=== PATIENT | male | born 1975 ===

== ENCOUNTER 2017-06-06 19:35 | Inpatient (IN) | payer MEDICAID, OTHER ==
[2017-06-06 19:36] VITALS: BMI 21.4
[2017-06-06 20:49] LABS: SQUAMOUS EPITHIAL 3 /hpf (0-5); URINE AMORPHOUS SEDIMENT RARE /ul (<OCC); URINE BACTERIA OCC (<OCC); URINE BILIRUBIN NEGATIVE (NEGATIVE); URINE BLOOD MODERATE (NEGATIVE); URINE CLARITY CLOUDY (Clear); URINE COLOR AMBER (YELLOW); URINE GLUCOSE (UA) NEG (Normal); URINE HYALINE CAST 0-2 /hpf (0-2); URINE LEUKOCYTE ESTERASE TRACE Leu/uL (Negative); URINE PROTEIN 100 mg/dL (NEGATIVE)
[2017-06-06 20:51] LABS: BASO % 0.1 % (0.0-2.0); HEMOGLOBIN 10.1 g/dL (12.0-18.0); LYMPH # 1.8 K/uL (1.0-4.3); LYMPH % 11.9 % (20.0-40.0); MEAN CELL VOLUME 82.7 fl (80.0-94.0); MEAN CORPUSCULAR HEMOGLOBIN 26.7 pg (27.0-31.0); MEAN CORPUSCULAR HGB CONC 32.3 g/dL (33.0-37.0); MEAN PLATELET VOLUME 7.3 fl (7.2-11.7); MONO # 0.8 K/uL (0.0-0.8); MONO % 5.5 % (0.0-10.0); NEUT # 12.4 K/uL (1.8-7.0); NEUT % 82.5 % (50.0-75.0); RBC 3.77 Mil/uL (4.40-5.90); RED CELL DISTRIBUTION WIDTH 15.4 % (11.5-14.5)
[2017-06-06 20:54] LABS: ALB/GLOB RATIO 0.6 (1.0-2.1); ALBUMIN 3.5 g/dL (3.5-5.0); ALT/SGPT 70 U/L (21-72); AST/SGOT 87 U/L (17-59); BLOOD UREA NITROGEN 17 mg/dl (9-20); CALCIUM 8.1 mg/dL (8.4-10.2); GFR AFRICAN-AMERICAN > 60; GFR NON-AFRICAN AMERICAN > 60
[2017-06-06 21:15] LABS: VENOUS BLOOD GAS BASE EXCESS -0.6 mmol/L (0.0-2.0); VENOUS BLOOD GAS PCO2 35 mmHg (40-60); VENOUS BLOOD GAS PO2 40 mm/Hg (30-55); VENOUS BLOOD PH 7.43 (7.32-7.43)
--- NOTE | 2017-06-06 21:33 | US ---
EXAM: US Scrotum CLINICAL HISTORY: 41 years old, male; Pain and signs and symptoms; Edema and other: Fever; Scrotum pain; Additional info: Fever l testicle pain, edema/mass TECHNIQUE: Real-time ultrasound of the scrotum with color Doppler and image documentation. COMPARISON: No relevant prior studies available. FINDINGS: Right testicle: No mass. No torsion. Left testicle: No mass. No torsion. Increased vascularity. Epididymides: Enlarged, heterogeneous, hypervascular LEFT epididymis. Scrotum: Unremarkable. IMPRESSION: 1. Findings suggestive of LEFT epididymitis and probable orchitis. Clinical correlation and follow up are recommended.
[2017-06-06] MEDS ORDERED: Piperacillin/Tazobact 4.5 GM in Sodium Chloride 0.9% 100 ML IVPB STA (22:04)
[2017-06-06] MEDS ORDERED: Sodium Chloride 0.9% 1,000 ML IV STA (22:06)
--- NOTE | 2017-06-06 23:26 | ED PDOC ---
HPI: General Adult Time Seen by Provider: 06/06/17 20:02 Chief Complaint (Nursing): Male Genitourinary Chief Complaint (Provider): left testicle pain, fever History Per: Patient History/Exam Limitations: no limitations Onset/Duration Of Symptoms: Days (4), Gradual Current Symptoms Are (Timing): Still Present Severity: Moderate Additional Complaint(s): 41yo male denies past medical history presents c/o left testicular pain and fever, taking Alleve and left over ampicillin at home with mild relief. Admits to last sexual encounter about one month ago, one partner, male, occassional protection. States tested for HIV last year when had hernia surgery and negative. Denies dysphagia, weight loss or cough, vomiting, diarrhea or penile discharge. Past Medical History Reviewed: Historical Data, Nursing Documentation, Vital Signs Vital Signs: Last Vital Signs Temp 98.4 F 06/06/17 23:04 Pulse 85 06/06/17 23:04 Resp 18 06/06/17 23:04 BP 119/70 06/06/17 23:04 Pulse Ox 99 06/06/17 23:04 - Medical History PMH: No Chronic Diseases Denies: Chronic Kidney Disease - Surgical History Surgical History: Appendectomy, Hernia Repair - Family History Family History: States: Unknown Family Hx - Living Arrangements Living Arrangements: Other - Social History Drugs: Denies - Home Medications Home Medications: Ambulatory Orders Medication Instructions Recorded Docusate [Colace] 100 mg PO BID #30 cap 11/16/15 oxyCODONE/Acetaminophen [Percocet 1 ea PO Q6 PRN #6 tab 11/16/15 5/325 mg Tab] - Allergies Allergies/Adverse Reactions: Allergies Allergy/AdvReac Type Severity Reaction Status Date / Time No Known Allergies Allergy Verified 11/16/15 13:03 Review of Systems Constitutional: Positive for: Fever, Chills, Weakness Cardiovascular: Negative for: Chest Pain Respiratory: Negative for: Cough Gastrointestinal: Negative for: Nausea Genitourinary Male: Positive for: Dysuria, Frequency, Scrotal Pain. Negative for: Hematuria, Penile Discharge Musculoskeletal: Positive for: Back Pain. Negative for: Neck Pain Skin: Positive for: Rash, Lesions Neurological: Positive for: Dizziness. Negative for: Weakness, Numbness, Headache Psych: Negative for: Suicidal ideation Physical Exam - Reviewed Nursing Documentation Reviewed: Yes Vital Signs Reviewed: Yes - Physical Exam Appears: Positive for: Non-toxic (mild temporal wasting) Head Exam: Positive for: ATRAUMATIC, NORMAL INSPECTION, NORMOCEPHALIC Skin: Positive for: Normal Color, Warm, DRY Eye Exam: Positive for: Normal appearance, EOMI, PERRL, Other (no obvious thrush ) ENT: Positive for: Normal ENT Inspection, Other (facial folliculitis) Neck: Positive for: Normal, Painless ROM Cardiovascular/Chest: Positive for: Regular Rate, Rhythm Respiratory: Positive for: CNT, Normal Breath Sounds Gastrointestinal/Abdominal: Positive for: Soft. Negative for: Tenderness Male Genital Exam: Positive for: scrotum tenderness (L), testicular tenderness ( L), other (L testicular tenderness/ mass/ enlargement). Negative for: urethral discharge Back: Positive for: Normal Inspection Extremity: Positive for: Normal ROM Neurologic/Psych: Positive for: Alert, Oriented. Negative for: Motor/Sensory Deficits - Laboratory Results Result Diagrams: 06/06/17 20:30 06/06/17 20:30 - ECG O2 Sat by Pulse Oximetry: 99 Medical Decision Making Medical Decision Making: patient w fever, evidence of infection/ concern for clinical appearance of HIV although he denies. Patient consented for repeat HIV testing Labs reveal elev WBC and elev lactate UA reveals WBC and RBC, leuk est US testicle concerning for orchitis/ epididymitis D/w urology Dr Jones rec Cordell, will consult D/w Dr Fowler title i paraprofessional ID, ok w lavelle/cordell, will consult Admit FP service for new onset HIV and sepsis workup I told patient w Dr Donaldson his presumptive HIV diagnosis and counseled to alert his partner(s). Confirmatory testing pending. Disposition - Clinical Impression Clinical Impression: Severe sepsis, Orchitis, HIV (human immunodeficiency virus infection) - Patient ED Disposition Is Patient to be Admitted: Yes - Disposition Disposition Time: 22:01 Condition: FAIR - Pt Status Changed To: Hospital Disposition Of: Inpatient - Admit Certification Admit to Inpatient:: After my assessment, the patient will require hospitalization for at least two midnights. This is because of the severity of symptoms shown, intensity of services needed, and/or the medical risk in this patient being treated as an outpatient. - POA Present On Arrival: None
--- NOTE | 2017-06-06 23:37 | CP.PCM.HP ---
History of Present Illness - History of Present Illness History of Present Illness: 41 yo ,m, PMhx/o left kidney agenesia presents to Ed c/o left testicular swelling started 3 days ago associated with fever 102-104 F, 2-3 times/day and mild testicular pain, partially alleviated with Aleve and advil. Patient also reports weight loss 5-10 lbs and fatigue for the last 6 months. He denies dysuria, hematuria, n,v,d,abd pain,diarrhea, rectal bleeding, urethral discharge, chest pain, SOB. Reportsto be sexually active MSM, 1 couple for the last year. Last intercourse 1 months ago, not using condoms. On evaluation in ED patient hemodynamically stable, denies testicular pain, labs showed + HIV screening test. Patient given HIV lab results by Dr Seaman and me. Patient verbalized understanding and agree to report to his couple. Reports HIV test neg in 2015 when he had the inguinal hernia surgery PMD: [facility] last visit 11/2015 Dr Rea PMHx: Left kidney agenesia Allergies: NKDA Meds : none Psurghx: Right inguinal hernia 2015, appendectomy 1999 PFhx: Mother HTN PShx: Denies ETOH,rect drugs, cig. Status: Full code Ed Course VS: Temp 102. 3 HR: 133 PE: left testicle swelling, enlargment, TD to palpation Labs: CBC: 15.0>10.1<296 CMP: NA 131. K: 3.3 VBG: lactate 3.2 UA reveals WBC and RBC, leuk est Imaging: US testicle left epididymitis and problable orchitis Meds: lavelle/patrick. NS 1l D/w urology Dr Jones rec Patrick, will consult D/w Dr Fowler consulting software engineer ID, ok w lavelle/patrick, will consult Present on Admission - Present on Admission Any Indicators Present on Admission: No History of DVT/PE: No History of Uncontrolled Diabetes: No Urinary Catheter: No Decubitus Ulcer Present: No Review of Systems - Review of Systems All systems: reviewed and no additional remarkable complaints except - Cardiovascular Cardiovascular: As Per HPI - Respiratory Respiratory: As Per HPI - Gastrointestinal Gastrointestinal: As Per HPI - Genitourinary Genitourinary: As Per HPI - Reproductive: Male Additional comments: left testicular swelling and pain - Neurological Neurological: As Per HPI Past Patient History - Past Medical History & Family History Past Medical History?: Yes - Past Social History Drugs: Denies - CARDIAC Hx Cardiac Disorders: No - PULMONARY Hx Respiratory Disorders: No - NEUROLOGICAL Hx Neurological Disorder: No - HEENT Hx HEENT Problems: No - RENAL Hx Chronic Kidney Disease: No - ENDOCRINE/METABOLIC Hx Endocrine Disorders: No - HEMATOLOGICAL/ONCOLOGICAL Hx Blood Disorders: No - INTEGUMENTARY Hx Dermatological Problems: No - MUSCULOSKELETAL/RHEUMATOLOGICAL Hx Musculoskeletal Disorders: No - GASTROINTESTINAL Hx Gastrointestinal Disorders: No - GENITOURINARY/GYNECOLOGICAL Hx Genitourinary Disorders: No - PSYCHIATRIC Hx Psychophysiologic Disorder: No Hx Substance Use: Yes (Occasional weed) - SURGICAL HISTORY Hx Appendectomy: Yes - ANESTHESIA Hx Anesthesia: Yes Hx Anesthesia Reactions: No Hx Malignant Hyperthermia: No Meds Allergies/Adverse Reactions: Allergies Allergy/AdvReac Type Severity Reaction Status Date / Time No Known Allergies Allergy Verified 11/16/15 13:03 Physical Exam - Constitutional Appears: No Acute Distress - Head Exam Head Exam: ATRAUMATIC, NORMOCEPHALIC - Eye Exam Eye Exam: EOMI, Normal appearance, PERRL - ENT Exam ENT Exam: Mucous Membranes Moist - Neck Exam Neck exam: Positive for: Normal Inspection - Respiratory Exam Respiratory Exam: Clear to Auscultation Bilateral. absent: Rales, Rhonchi, Wheezes - Cardiovascular Exam Cardiovascular Exam: REGULAR RHYTHM, +S1, +S2 - GI/Abdominal Exam GI & Abdominal Exam: Normal Bowel Sounds, Soft. absent: Guarding, Rebound, Tenderness - Exam Exam: Scrotal Swelling (left testicule swelling, redness, mild skin abrasion , no discharge), Testicular Tenderness External exam: Erythema, Swelling Additional comments: left inguinal small lymphadenopathy present - Extremities Exam Extremities exam: Positive for: normal capillary refill, normal inspection. Negative for: calf tenderness, pedal edema - Back Exam Back exam: NORMAL INSPECTION - Neurological Exam Neurological exam: Alert, Oriented x3 - Psychiatric Exam Psychiatric exam: Normal Affect, Normal Mood - Skin Skin Exam: Erythema (mild rash and skin erythema lateral side jaw), Rash Results - Vital Signs Recent Vital Signs: Last Vital Signs Temp 98.4 F 06/06/17 23:04 Pulse 85 06/06/17 23:04 Resp 18 06/06/17 23:04 BP 119/70 06/06/17 23:04 Pulse Ox 99 06/06/17 23:30 - Labs Result Diagrams: 06/06/17 20:30 06/06/17 20:30 Labs: Laboratory Results - last 24 hr 06/06/17 06/06/17 06/06/17 20:30 20:30 20:30 WBC 15.0 H RBC 3.77 L Hgb 10.1 L Hct 31.2 L MCV 82.7 MCH 26.7 L MCHC 32.3 L RDW 15.4 H Plt Count 296 MPV 7.3 Neut % (Auto) 82.5 H Lymph % (Auto) 11.9 L [place] % (Auto) 5.5 Eos % (Auto) 0.0 Baso % (Auto) 0.1 Neut # (Auto) 12.4 H Lymph # (Auto) 1.8 [place] # (Auto) 0.8 Eos # (Auto) 0.0 Baso # (Auto) 0.0 pO2 VBG pH VBG pCO2 VBG HCO3 VBG Total CO2 VBG O2 Sat (Calc) VBG Base Excess VBG Potassium Glucose Lactate FiO2 Crit Value Called To Crit Value Called By Crit Value Read Back Blood Gas Notified Time Sodium 131 L Potassium 3.3 L Chloride 96 L Carbon Dioxide 21 L Anion Gap 17 BUN 17 Creatinine 0.9 Est GFR ( Amer) > 60 Est GFR (Non-Af Amer) > 60 Random Glucose 165 H Calcium 8.1 L Total Bilirubin 0.4 AST 87 H ALT 70 Alkaline Phosphatase 89 Total Protein 9.4 H Albumin 3.5 Globulin 5.9 H Albumin/Globulin Ratio 0.6 L Venous Blood Potassium Urine Color Urine Clarity Urine pH Ur Specific [place] Urine Protein Urine Glucose (UA) Urine Ketones Urine Blood Urine Nitrate Urine Bilirubin Urine Urobilinogen Ur Leukocyte Esterase Urine RBC (Auto) Urine Microscopic WBC Ur Squamous Epith Cells Amorphous Sediment Urine Bacteria Hyaline Casts HIV-1 Ab Rapid Screen Ab reactive H 06/06/17 06/06/17 20:30 21:06 WBC RBC Hgb Hct MCV MCH MCHC RDW Plt Count MPV Neut % (Auto) Lymph % (Auto) [place] % (Auto) Eos % (Auto) Baso % (Auto) Neut # (Auto) Lymph # (Auto) [place] # (Auto) Eos # (Auto) Baso # (Auto) pO2 40 VBG pH 7.43 VBG pCO2 35 L VBG HCO3 23.9 VBG Total CO2 24.3 VBG O2 Sat (Calc) 71.3 H VBG Base Excess -0.6 L VBG Potassium 3.5 L Glucose 146 H Lactate 3.2 H FiO2 21.0 Crit Value Called To kelsey Seaman do Crit Value Called By Patrick mendoza Crit Value Read Back Y Blood Gas Notified Time 2114 Sodium 129.0 L Potassium Chloride 95.0 L Carbon Dioxide Anion Gap BUN Creatinine Est GFR ( Amer) Est GFR (Non-Af Amer) Random Glucose Calcium Total Bilirubin AST ALT Alkaline Phosphatase Total Protein Albumin Globulin Albumin/Globulin Ratio Venous Blood Potassium 3.5 L Urine Color [place] Urine Clarity Cloudy Urine pH 6.0 Ur Specific [place] 1.030 Urine Protein 100 Urine Glucose (UA) Neg Urine Ketones Negative Urine Blood Moderate Urine Nitrate Negative Urine Bilirubin Negative Urine Urobilinogen 2.0 Ur Leukocyte Esterase Trace Urine RBC (Auto) 33 H Urine Microscopic WBC 15 H Ur Squamous Epith Cells 3 Amorphous Sediment Rare H Urine Bacteria Occ H Hyaline Casts 0-2 HIV-1 Ab Rapid Screen Assessment & Plan - Assessment and Plan (Free Text) Plan: 41 yo ,m, PMhx/o left kidney agenesia c/o left testicular swelling, pain and fever for 3 days admitted for left testicular epididymitis, new diagnosis HIV and sev sepsis. Assessment/Plan 1)Severe sepsis -SIRS( fever, Tachy)+epididymitis+UTI -inmunospuressed patient with new diagnosis HIV -VBG lactic acid 3.2 -s/p Zosyn, Vancomycin ED -c/w vancomcin, Zosyn -s/p IV fluids ED -c/w IV fluids NS 150 ml/h 20 meq KCL -f/u blood cx, f/u VBG 2) Left testicular epididymitis -with possible orchitis -Testicular US: left testicular orchitis with possible epidydimitis -s/p Abx Ed -c/w abx -D/w urology Dr Jones rec Sobiasyn, will consult -D/w Dr Fowler consulting software engineer ID, ok w vanco/zosyn, will consult -f/u Gc/chlamydia -f/u urine cx 3) UTI -low UTI secondary to orchitis. may be GC/chlamydia infection -UA hematuria, leukocyturia, lukocyte sterase positive -c/w abd -will need cover with Azythromycin 1gm PO -f/u urine cx 4) Newly diagnosed HIV positive -MSM, fatigue, weight loss -HIV screening positive -HIV ag/Ab 4gen -Viral load -CD4 -f/u hepbAg/ab, hepc Ab 5) Hypokalemia IV fluids NS and KCL 20 meq -f/u CMP 6 ) DVT Prophylaxis -Lovenox 40 mg sc daily
[2017-06-07 00:29] LABS: VENOUS BLOOD GAS BASE EXCESS -0.4 mmol/L (0.0-2.0); VENOUS BLOOD GAS PCO2 33 mmHg (40-60); VENOUS BLOOD GAS PO2 38 mm/Hg (30-55); VENOUS BLOOD PH 7.45 (7.32-7.43)
[2017-06-07] MEDS: Potassium Chl 20 mEq in NS 1,000 ML IV SCH ×4 (01:09→13:49)
[2017-06-07] MEDS: Piperacillin/Tazobact 4.5 GM in Sodium Chloride 0.9% 100 ML IVPB SCH ×4 (04:55→21:55)
[2017-06-07 05:53] LABS: HEMOGLOBIN 9.6 g/dL (12.0-18.0); MEAN CELL VOLUME 82.3 fl (80.0-94.0); MEAN CORPUSCULAR HGB CONC 32.8 g/dL (33.0-37.0); RBC 3.56 Mil/uL (4.40-5.90); RED CELL DISTRIBUTION WIDTH 15.5 % (11.5-14.5); WHITE BLOOD COUNT 9.8 K/uL (4.8-10.8)
[2017-06-07] MEDS ORDERED: Pneumococcal 23-Valent Vaccine IM ONE (06:00)
[2017-06-07 06:03] LABS: ALB/GLOB RATIO 0.6 (1.0-2.1); ALBUMIN 3.1 g/dL (3.5-5.0); ALT/SGPT 65 U/L (21-72); AST/SGOT 86 U/L (17-59); BLOOD UREA NITROGEN 13 mg/dl (9-20); CALCIUM 7.6 mg/dL (8.4-10.2); GFR AFRICAN-AMERICAN > 60; GFR NON-AFRICAN AMERICAN > 60
--- NOTE | 2017-06-07 07:55 | CP.PCM.PN ---
Subjective - Date & Time of Evaluation Date of Evaluation: 06/07/17 Time of Evaluation: 08:50 - Subjective Subjective: Pt seen and examined at bedside. Reports improved L testicular pain with meds. Reports no difficulty or burnging with urination. Denies cp/sob/n/v. Reports last BM last night. Objective - Vital Signs/Intake and Output Vital Signs (last 24 hours): Temp Pulse Resp BP Pulse Ox 101.8 F H 128 H 20 126/74 98 06/07/17 05:55 06/07/17 05:07 06/07/17 05:07 06/07/17 05:07 06/07/17 05:07 - Medications Medications: Current Medications Acetaminophen (Tylenol 325mg Tab) 650 mg PO Q6 PRN PRN Reason: Pain, Mild (1-3) Acetaminophen (Tylenol 325mg Tab) 650 mg PO Q6 PRN PRN Reason: Fever >100.4 F Last Admin: 06/07/17 04:55 Dose: 650 mg Enoxaparin Sodium (Lovenox) 40 mg SC DAILY B[place] PRN Reason: Protocol Potassium Chloride/Sodium Chloride (Potassium Chl 20 Meq In Ns) 1,000 mls @ 150 mls/hr IV .Q6H40M [place] Stop: 06/07/17 23:45 Last Admin: 06/07/17 06:32 Dose: Not Given Piperacillin Sod/Tazobactam (Sod 4.5 gm/ Sodium Chloride) 100 mls @ 100 mls/hr IVPB Q6 [place] PRN Reason: Protocol Last Admin: 06/07/17 04:55 Dose: 100 mls/hr Vancomycin HCl 1 gm/ Sodium (Chloride) 250 mls @ 166.667 mls/hr IVPB Q12 [place] PRN Reason: Protocol Ketorolac Tromethamine (Toradol) 15 mg IVP Q6 PRN PRN Reason: Pain, moderate (4-7) Ondansetron HCl (Zofran Inj) 4 mg IVP Q6 PRN PRN Reason: Nausea/Vomiting Oxycodone/Acetaminophen (Percocet 5/325 Mg Tab) 1 tab PO Q4 PRN PRN Reason: Pain, severe (8-10) Stop: 06/09/17 23:39 - Labs Labs: 06/07/17 04:20 06/07/17 04:20 - Constitutional Appears: No Acute Distress - Head Exam Additional comments: L perioral lesions. - Eye Exam Eye Exam: EOMI - Neck Exam Neck Exam: Full ROM - Respiratory Exam Respiratory Exam: Clear to Ausculation Bilateral. absent: Wheezes - Cardiovascular Exam Cardiovascular Exam: +S1, +S2 - GI/Abdominal Exam GI & Abdominal Exam: Soft, Normal Bowel Sounds. absent: Tenderness - Exam Exam: Scrotal Swelling, Testicular Tenderness. absent: Uretheral Discharge - Extremities Exam Extremities Exam: absent: Calf Tenderness - Neurological Exam Neurological Exam: Alert, Awake, Oriented x3 - Psychiatric Exam Psychiatric exam: Normal Affect, Normal Mood Assessment and Plan - Assessment and Plan (Free Text) Plan: 41 yo ,m, PMhx/o left kidney agenesia c/o left testicular swelling, pain and fever for 3 days admitted for left testicular epididymitis, new diagnosis HIV and sev sepsis. Assessment/Plan Sepsis- improving -SIRS( fever, Tachy)+epididymitis+UTI; Fever and tachycardia resolved on 2017 approx 16:00 -inmunospuressed patient with new diagnosis HIV -VBG lactic acid 3.2; f/u: 0.9 -CXR: No acute infiltrate or cardiovascular disease appreciable. Small nodule at R middle or lower lobes: f/u. -CT: chest: 1.7 cm pleural thickening or potential focal atelectasis at inferomedial R major fissure. An intrinsic mass is not favored. f/u w/o 3-6 mo. -s/p Zosyn, Vancomycin ED -ID: Dr. Fowler: recommendations appreciated: continue vanc/zosyn. f/u labs -vancomcin, Zosyn (day 2) vanc trough tomorrow -s/p IV fluids ED: 1L NS bolus -c/w IV fluids NS 150 ml/h 20 meq KCL -f/u blood cx Left testicular epididymitis -with possible orchitis -Testicular US: left testicular orchitis with possible epidydimitis -Urology Dr Jones rec Zosyn -ID: Dr Fowler , vanc/zosyn -f/u Gc/chlamydia -f/u urine cx UTI -low UTI secondary to orchitis. may be GC/chlamydia infection -UA hematuria, leukocyturia, lukocyte sterase positive -c/w abx -f/u urine cx Newly diagnosed HIV positive -Fatigue, weight loss -HIV rapid screening positive -CXR: No acute infiltrate or cardiovascular disease appreciable. Small nodule at R middle or lower lobes: f/u. -CT: chest: 1.7 cm pleural thickening or potential focal atelectasis at inferomedial R major fissure. An intrinsic mass is not favored. f/u w/o 3-6 mo. -f/u: HIV ag/Ab 4gen -f/u: Viral load -f/u: CD4 -f/u HepA, hepbAg/ab, hepc Ab -f/u: g/c -f/u rpr -f/u PPD -f/u: amylase/lipase -f/u: toxoplasmosis, CMV -Case management for referral to [facility] Hypokalemia IV fluids NS and KCL 20 meq -f/u CMP DVT Prophylaxis -Lovenox 40 mg sc daily
--- NOTE | 2017-06-07 08:51 | RAD ---
HISTORY: chest pain/ r/o infiltrate COMPARISON: No prior. TECHNIQUE: Chest PA and lateral FINDINGS: LUNGS: No acute infiltrate appreciated bilaterally. A nodular density at the inferolateral right lung is appreciated in the frontal and lateral views. Follow-up chest is advised to evaluate for possible nodule at the right middle or lower lobes. A calcified granuloma is seen at the medial left apex. PLEURA: No significant pleural effusion identified. No pneumothorax apparent. CARDIOVASCULAR: Normal. OSSEOUS STRUCTURES: No significant abnormalities. VISUALIZED UPPER ABDOMEN: Normal. OTHER FINDINGS: None. IMPRESSION: No acute infiltrate or cardiovascular disease appreciable. Small nodule is question in the right middle or lower lobes for which follow-up chest is advised for more definitive characterization. PA review assigned.
[2017-06-07] MEDS: Enoxaparin 40 mg Syringe SC SCH (09:44)
--- NOTE | 2017-06-07 10:31 | CARD ---
APPROVED REPORT EKG Measurement Heart [id number] <Conclusion> Normal sinus rhythm Normal ECG
--- NOTE | 2017-06-07 14:53 | CP.PCM.CON ---
History of Present Illness - History of Present Illness History of Present Illness: Infectious Disease - Dr. Fowler 41M seen and evaluated at bedside. Patient states he developed painful testicular swelling with associated fever which started approximately 3 days prior to presentation to [facility] ED. Patient denies urethral discharge, dysuria, hematuria. Per chart, patient sexually active MSM for the past year; last intercourse 1 month ago w/o use of condoms. Patient admits to taking OTC medications such as Aleve and Advil for pain relief. At present, patient states the swelling has improved since initial presentation; states testicular pain is well controlled. Denies nausea, vomiting, diarrhea, rectal bleeding, abd pain, SOB, chest pain, palpitations, headache, dizziness. Review of Systems - Review of Systems All systems: reviewed and no additional remarkable complaints except (as per HPI ) Past Patient History - Past Medical History & Family History Past Medical History?: Yes - Past Social History Drugs: Denies - CARDIAC Hx Cardiac Disorders: No - PULMONARY Hx Respiratory Disorders: No - NEUROLOGICAL Hx Neurological Disorder: No - HEENT Hx HEENT Problems: No - RENAL Hx Chronic Kidney Disease: No - ENDOCRINE/METABOLIC Hx Endocrine Disorders: No - HEMATOLOGICAL/ONCOLOGICAL Hx Blood Disorders: No - INTEGUMENTARY Hx Dermatological Problems: No - MUSCULOSKELETAL/RHEUMATOLOGICAL Hx Musculoskeletal Disorders: No - GASTROINTESTINAL Hx Gastrointestinal Disorders: No - GENITOURINARY/GYNECOLOGICAL Hx Genitourinary Disorders: No - PSYCHIATRIC Hx Psychophysiologic Disorder: No Hx Substance Use: Yes (Occasional weed) - SURGICAL HISTORY Hx Appendectomy: Yes - ANESTHESIA Hx Anesthesia: Yes Hx Anesthesia Reactions: No Hx Malignant Hyperthermia: No Meds Allergies/Adverse Reactions: Allergies Allergy/AdvReac Type Severity Reaction Status Date / Time No Known Allergies Allergy Verified 11/16/15 13:03 - Medications Medications: Current Medications Acetaminophen (Tylenol 325mg Tab) 650 mg PO Q6 PRN PRN Reason: Pain, Mild (1-3) Acetaminophen (Tylenol 325mg Tab) 650 mg PO Q6 PRN PRN Reason: Fever >100.4 F Last Admin: 06/07/17 11:44 Dose: 650 mg Enoxaparin Sodium (Lovenox) 40 mg SC DAILY BEVERLEY PRN Reason: Protocol Last Admin: 06/07/17 09:44 Dose: 40 mg Potassium Chloride/Sodium Chloride (Potassium Chl 20 Meq In Ns) 1,000 mls @ 150 mls/hr IV .Q6H40M [facility] Stop: 06/07/17 23:45 Last Admin: 06/07/17 13:49 Dose: Not Given Piperacillin Sod/Tazobactam (Sod 4.5 gm/ Sodium Chloride) 100 mls @ 100 mls/hr IVPB Q6 B[facility]LEY PRN Reason: Protocol Last Admin: 06/07/17 09:45 Dose: 100 mls/hr Vancomycin HCl 1 gm/ Sodium (Chloride) 250 mls @ 166.667 mls/hr IVPB Q12 BEVERLEY PRN Reason: Protocol Last Admin: 06/07/17 09:48 Dose: 166.667 mls/hr Ketorolac Tromethamine (Toradol) 15 mg IVP Q6 PRN PRN Reason: Pain, moderate (4-7) Ondansetron HCl (Zofran Inj) 4 mg IVP Q6 PRN PRN Reason: Nausea/Vomiting Oxycodone/Acetaminophen (Percocet 5/325 Mg Tab) 1 tab PO Q4 PRN PRN Reason: Pain, severe (8-10) Stop: 06/09/17 23:39 Physical Exam - Constitutional Appears: No Acute Distress - Head Exam Head Exam: NORMOCEPHALIC - Eye Exam Eye Exam: EOMI, Normal appearance Pupil Exam: PERRL - ENT Exam ENT Exam: Mucous Membranes Moist - Neck Exam Neck exam: Positive for: Full Rom. Negative for: Tenderness - Respiratory Exam Respiratory Exam: Clear to Auscultation Bilateral, NORMAL BREATHING PATTERN - Cardiovascular Exam Cardiovascular Exam: Tachycardia - GI/Abdominal Exam GI & Abdominal Exam: absent: Distended, Tenderness - Exam Exam: Scrotal Swelling, Testicular Tenderness. absent: Uretheral Discharge, Bladder Distension External exam: Swelling Additional comments: left inguinal small lymphadenopathy present - Extremities Exam Extremities exam: Positive for: full ROM. Negative for: tenderness - Neurological Exam Neurological exam: Alert, Oriented x3 - Psychiatric Exam Psychiatric exam: Normal Affect, Normal Mood - Skin Additional comments: Erythema (mild rash and skin erythema lateral side jaw), Rash Results - Vital Signs Recent Vital Signs: Last Vital Signs Temp 100.4 F H 06/07/17 12:44 Pulse 125 H 06/07/17 11:50 Resp 18 06/07/17 11:50 BP 114/64 06/07/17 11:50 Pulse Ox 99 06/07/17 14:34 - Labs Result Diagrams: 06/07/17 04:20 06/07/17 04:20 Labs: Laboratory Results - last 24 hr 06/06/17 06/06/17 06/06/17 20:30 20:30 20:30 WBC 15.0 H RBC 3.77 L Hgb 10.1 L Hct 31.2 L MCV 82.7 MCH 26.7 L MCHC 32.3 L RDW 15.4 H Plt Count 296 MPV 7.3 Neut % (Auto) 82.5 H Lymph % (Auto) 11.9 L [place] % (Auto) 5.5 Eos % (Auto) 0.0 Baso % (Auto) 0.1 Neut # (Auto) 12.4 H Lymph # (Auto) 1.8 [place] # (Auto) 0.8 Eos # (Auto) 0.0 Baso # (Auto) 0.0 pO2 VBG pH VBG pCO2 VBG HCO3 VBG Total CO2 VBG O2 Sat (Calc) VBG Base Excess VBG Potassium Glucose Lactate FiO2 Crit Value Called To Crit Value Called By Crit Value Read Back Blood Gas Notified Time Sodium 131 L Potassium 3.3 L Chloride 96 L Carbon Dioxide 21 L Anion Gap 17 BUN 17 Creatinine 0.9 Est GFR ( Amer) > 60 Est GFR (Non-Af Amer) > 60 Random Glucose 165 H Calcium 8.1 L Total Bilirubin 0.4 AST 87 H ALT 70 Alkaline Phosphatase 89 Total Protein 9.4 H Albumin 3.5 Globulin 5.9 H Albumin/Globulin Ratio 0.6 L Venous Blood Potassium Urine Color Urine Clarity Urine pH Ur Specific Bayard Urine Protein Urine Glucose (UA) Urine Ketones Urine Blood Urine Nitrate Urine Bilirubin Urine Urobilinogen Ur Leukocyte Esterase Urine RBC (Auto) Urine Microscopic WBC Ur Squamous Epith Cells Amorphous Sediment Urine Bacteria Hyaline Casts Hep Bs Antibody HIV-1 Ab Rapid Screen Ab reactive H 06/06/17 06/06/17 06/07/17 20:30 21:06 00:26 WBC RBC Hgb Hct MCV MCH MCHC RDW Plt Count MPV Neut % (Auto) Lymph % (Auto) [place] % (Auto) Eos % (Auto) Baso % (Auto) Neut # (Auto) Lymph # (Auto) [place] # (Auto) Eos # (Auto) Baso # (Auto) pO2 40 38 VBG pH 7.43 7.45 H VBG pCO2 35 L 33 L VBG HCO3 23.9 24.0 VBG Total CO2 24.3 23.9 VBG O2 Sat (Calc) 71.3 H 74.9 H VBG Base Excess -0.6 L -0.4 L VBG Potassium 3.5 L 3.6 Glucose 146 H 94 Lactate 3.2 H 0.9 FiO2 21.0 21.0 Crit Value Called To kelsey Seaman do Crit Value Called By Patrick mendoza Crit Value Read Back Y Blood Gas Notified Time 2114 Sodium 129.0 L 131.0 L Potassium Chloride 95.0 L 102.0 Carbon Dioxide Anion Gap BUN Creatinine Est GFR ( Amer) Est GFR (Non-Af Amer) Random Glucose Calcium Total Bilirubin AST ALT Alkaline Phosphatase Total Protein Albumin Globulin Albumin/Globulin Ratio Venous Blood Potassium 3.5 L 3.6 Urine Color Mercedes Urine Clarity Cloudy Urine pH 6.0 Ur Specific Bayard 1.030 Urine Protein 100 Urine Glucose (UA) Neg Urine Ketones Negative Urine Blood Moderate Urine Nitrate Negative Urine Bilirubin Negative Urine Urobilinogen 2.0 Ur Leukocyte Esterase Trace Urine RBC (Auto) 33 H Urine Microscopic WBC 15 H Ur Squamous Epith Cells 3 Amorphous Sediment Rare H Urine Bacteria Occ H Hyaline Casts 0-2 Hep Bs Antibody HIV-1 Ab Rapid Screen 06/07/17 06/07/17 06/07/17 04:20 04:20 04:20 WBC 9.8 RBC 3.56 L Hgb 9.6 L Hct 29.3 L MCV 82.3 MCH 27.0 MCHC 32.8 L RDW 15.5 H Plt Count 242 MPV Neut % (Auto) Lymph % (Auto) [place] % (Auto) Eos % (Auto) Baso % (Auto) Neut # (Auto) Lymph # (Auto) [place] # (Auto) Eos # (Auto) Baso # (Auto) pO2 VBG pH VBG pCO2 VBG HCO3 VBG Total CO2 VBG O2 Sat (Calc) VBG Base Excess VBG Potassium Glucose Lactate FiO2 Crit Value Called To Crit Value Called By Crit Value Read Back Blood Gas Notified Time Sodium 135 Potassium 3.5 L Chloride 102 Carbon Dioxide 21 L Anion Gap 16 BUN 13 Creatinine 0.8 Est GFR ( Amer) > 60 Est GFR (Non-Af Amer) > 60 Random Glucose 114 H Calcium 7.6 L Total Bilirubin 0.4 AST 86 H ALT 65 Alkaline Phosphatase 89 Total Protein 8.5 H Albumin 3.1 L Globulin 5.4 H Albumin/Globulin Ratio 0.6 L Venous Blood Potassium Urine Color Urine Clarity Urine pH Ur Specific Bayard Urine Protein Urine Glucose (UA) Urine Ketones Urine Blood Urine Nitrate Urine Bilirubin Urine Urobilinogen Ur Leukocyte Esterase Urine RBC (Auto) Urine Microscopic WBC Ur Squamous Epith Cells Amorphous Sediment Urine Bacteria Hyaline Casts Hep Bs Antibody Negative HIV-1 Ab Rapid Screen Assessment & Plan (1) Epididymitis Status: Acute (2) HIV (human immunodeficiency virus infection) Status: Acute (3) Orchitis Status: Acute (4) Severe sepsis Status: Acute - Assessment and Plan (Free Text) Plan: Patient seen and evaluated alongside Dr. Fowler Continue Vancomycin, Zosyn Continue fluids Positive HIV rapid -f/u viral load f/u Hep B Ag/Ab, Hep C Ab f/u blood cx, urine cx f/u GC/chlamydia
[2017-06-07] MEDS: Oxycodone/Acetaminophen 5/325 mg Tab PO PRN (15:38)
--- NOTE | 2017-06-07 16:16 | CT ---
PROCEDURE: CT Chest without contrast HISTORY: pulmonary nodule on CXR COMPARISON: Chest radiograph 06/06/2017. TECHNIQUE: Contiguous axial images were obtained through the chest without intravenous contrast enhancement. Sagittal and coronal reconstructions were performed. Radiation dose (DLP): 197.52 mGy-cm. This CT exam was performed using one or more of the following dose reduction techniques: Automated exposure control, adjustment of the mA and/or kV according to patient size, and/or use of iterative reconstruction technique. FINDINGS: LUNGS: Likely corresponding to the lateral radiograph finding is a 1.7 x 0.8 cm density abutting the inferior medial margins of the right major fissure in image 64 series 3. Trace air may be contained in the superior-most margins of this structure though none is seen internally through the core specifically. This may represent local atelectasis abutting the major fissure or intrinsic pleural thickening. Precautionary follow-up chest CT is recommended in 3 6 months to demonstrate stability or resolution of this finding. Otherwise calcified granulomata are seen at the left lower lobe posterior costophrenic sulcus, immediately cephalad to the left hemidiaphragm and at the medial left pulmonary apex with no additional pulmonary nodular foci appreciated bilaterally. The central airways are clear. There is no infiltrate bilaterally. MEDIASTINUM: Unremarkable thoracic aorta. No aneurysm. Normal sized heart. Trace pericardial thickening or fluid is noted. Main pulmonary artery unremarkable. No vascular congestion. No lymphadenopathy. PLEURA: No pleural fluid. No pneumothorax. BONES: No fracture. No destructive lesion. UPPER ABDOMEN: Grossly unremarkable. OTHER FINDINGS: None. IMPRESSION: 1. 1.7 cm area of pleural thickening or potential focal atelectasis abuts the inferomedial right major fissure. An intrinsic mass is not favored. Follow-up chest is advised without contrast 3 6 months to demonstrate stability or resolution of this finding. 2. Multiple left pulmonary calcified granulomata. 3. Trace pericardial thickening or fluid with normal cardiac size evident.
[2017-06-07] MEDS ORDERED: Tuberculin 5 Units/0.1 ml Inj ID ONE (18:00)
[2017-06-07] MEDS ORDERED: Chlorhexidine Gluconate 1 APPL/PKT TP ONE (18:59)
--- NOTE | 2017-06-07 22:23 | CON ---
COMPREHENSIVE UROLOGIC CONSULTATION DATE: 06/07/2017 TIME OF CONSULTATION: Roughly 7:15 p.m. BRIEF HISTORY: The patient is a 41-year-old male from [facility] who presents to [facility] ER with a complaint of swelling of his left scrotum for 3 days without any pain. A scrotal ultrasound done on 06/06/2017, the date of admission showed left epididymitis and probable orchitis. No testicular masses or torsion and positive for increased vascularity. The patient had a temperature of 102.8 as his maximum temperature and was admitted to treatment of urosepsis. It was also incidentally found that the patient was HIV positive, which the patient did not know previously. The patient does have tattoos. He voids with his usual normal urinary stream. No dysuria, gross hematuria, renal colic, or abdominal pain. ALLERGIES: HE HAS NO KNOWN ALLERGIES TO ANY MEDICATION. FAMILY HISTORY: There is no history of cancer or family history of cancer and no history of any sexually transmitted diseases. No history of any ED. SOCIAL HISTORY: He is a nonsmoker with no history of any alcohol abuse. PAST SURGICAL HISTORY: Includes appendix surgery and inguinal hernia surgery. PHYSICAL EXAMINATION: VITAL SIGNS: Today 06/07/2017, his T-Max was 102.8 at 11.50 a.m. and his temperature now is 98.5 on IV Zosyn and vancomycin. His pulse rate has come down from 125 at 11.50 a.m. and is now down to 90 at this hour. His blood pressure is 112/72. His respirations are 18. His O2 sat on room air is 99%. HEENT: Grossly within normal limits. NECK: Supple. Thyroid nonpalpable. ABDOMEN: His abdomen is soft, nondistended, and nontender. No CVA tenderness or suprapubic tenderness. GENITALIA: Right testis is down, normal size, and nontender. Left scrotal sac is swollen and minimally tender. EXTREMITIES: He has full range of motion in both upper and lower extremities without limitations. LABORATORY DATA: On admission; his CBC showed a WBC count of 15 with hemoglobin of 10.1 and hematocrit of 31.2 and now at 4 p.m. on 06/07/2017, his CBC dropped down to 9.8, hemoglobin is 9.6, and hematocrit is 29.3, and his platelet count is 242,000. His chem profile shows a sodium of 135, CO2 of 21, BUN and creatinine 13 and 0.8 respectively with GFR of greater than 60. Random glucose is 114. Calcium 7.6 and total bilirubin 0.4. AST 86 and ALT 65, both slightly elevated. His urinalysis on 06/06/2017 showed the color was aria, clarity was cloudy, pH of 6, specific gravity 1.030, protein 100, glucose negative, ketones negative, blood moderate, nitrite negative, bilirubin negative, urobilinogen 2, leukocyte esterase trace, there were 33 RBCs and 15 WBCs per high-power field with occasional bacteria. HIV 1 antibody rapid screen was reactive. Hepatitis B surface antibody was negative. DIAGNOSTIC IMPRESSION: Left epididymal orchitis, responding to IV Zosyn and vancomycin. PLAN: Check the urine culture and sensitivities. The patient can be discharged home on proper oral antibiotics, which could include either Augmentin, Ceftin or Cipro if sensative to these antibiotics. Alexis Jones MD MTDTramaine
[2017-06-08] MEDS: Piperacillin/Tazobact 4.5 GM in Sodium Chloride 0.9% 100 ML IVPB SCH ×4 (03:31→21:14)
[2017-06-08] MEDS: Oxycodone/Acetaminophen 5/325 mg Tab PO PRN ×2 (03:36→09:24)
[2017-06-08 07:08] LABS: MEAN CORPUSCULAR HEMOGLOBIN 27.1 pg (27.0-31.0); MEAN CORPUSCULAR HGB CONC 32.7 g/dL (33.0-37.0); RBC 3.31 Mil/uL (4.40-5.90); RED CELL DISTRIBUTION WIDTH 15.5 % (11.5-14.5)
[2017-06-08 07:22] LABS: ALB/GLOB RATIO 0.5 (1.0-2.1); ALBUMIN 2.7 g/dL (3.5-5.0); ALT/SGPT 68 U/L (21-72); AMYLASE 127 U/L (30-110); AST/SGOT 89 U/L (17-59); BLOOD UREA NITROGEN 11 mg/dl (9-20); CALCIUM 7.8 mg/dL (8.4-10.2); GFR AFRICAN-AMERICAN > 60; GFR NON-AFRICAN AMERICAN > 60; LIPASE 230 U/L (23-300)
--- NOTE | 2017-06-08 09:22 | CP.PCM.PN ---
Subjective - Date & Time of Evaluation Date of Evaluation: 06/08/17 Time of Evaluation: 07:20 - Subjective Subjective: Pt seen and examined at bedside. Reports minimal L testicular pain. Pt denies significant overnight events. Pt denies CP/SOB/N/V Denies dysuria. Tolerating PO diet. Objective - Vital Signs/Intake and Output Vital Signs (last 24 hours): Temp Pulse Resp BP Pulse Ox 98.6 F 86 20 142/78 99 06/08/17 08:23 06/08/17 08:23 06/08/17 08:23 06/08/17 08:23 06/08/17 08:23 - Medications Medications: Current Medications Acetaminophen (Tylenol 325mg Tab) 650 mg PO Q6 PRN PRN Reason: Pain, Mild (1-3) Acetaminophen (Tylenol 325mg Tab) 650 mg PO Q6 PRN PRN Reason: Fever >100.4 F Last Admin: 06/07/17 11:44 Dose: 650 mg Enoxaparin Sodium (Lovenox) 40 mg SC DAILY BEVERLEY PRN Reason: Protocol Last Admin: 06/07/17 09:44 Dose: 40 mg Piperacillin Sod/Tazobactam (Sod 4.5 gm/ Sodium Chloride) 100 mls @ 100 mls/hr IVPB Q6 [facility] PRN Reason: Protocol Last Admin: 06/08/17 03:31 Dose: 100 mls/hr Vancomycin HCl 1 gm/ Sodium (Chloride) 250 mls @ 166.667 mls/hr IVPB Q12 [facility] PRN Reason: Protocol Last Admin: 06/07/17 20:12 Dose: 166.667 mls/hr Ketorolac Tromethamine (Toradol) 15 mg IVP Q6 PRN PRN Reason: Pain, moderate (4-7) Last Admin: 06/07/17 20:10 Dose: 15 mg Ondansetron HCl (Zofran Inj) 4 mg IVP Q6 PRN PRN Reason: Nausea/Vomiting Oxycodone/Acetaminophen (Percocet 5/325 Mg Tab) 1 tab PO Q4 PRN PRN Reason: Pain, severe (8-10) Stop: 06/09/17 23:39 Last Admin: 06/08/17 03:36 Dose: 1 tab - Labs Labs: 06/08/17 06:00 06/08/17 06:00 - Constitutional Appears: Well, No Acute Distress - Head Exam Additional comments: L perioral healing lesions. - Eye Exam Eye Exam: EOMI - Respiratory Exam Respiratory Exam: Clear to Ausculation Bilateral, NORMAL BREATHING PATTERN. absent: Wheezes - Cardiovascular Exam Cardiovascular Exam: REGULAR RHYTHM, +S1, +S2 - GI/Abdominal Exam GI & Abdominal Exam: Soft, Normal Bowel Sounds. absent: Tenderness - Neurological Exam Neurological Exam: Alert, Awake, CN II-XII Intact, Oriented x3 - Psychiatric Exam Psychiatric exam: Normal Affect, Normal Mood Assessment and Plan - Assessment and Plan (Free Text) Plan: 41 yo M PMhx/o left kidney agenesia c/o left testicular swelling, pain and fever for 3 days admitted for left testicular epididymitis, new diagnosis HIV and presented sev sepsis. Assessment/Plan Sepsis- improving - Transfer to [facility] [place] -SIRS( fever, Tachy)+epididymitis+UTI; Fever and tachycardia resolved on 2017 approx 16:00 -inmunospuressed patient with new diagnosis HIV -VBG lactic acid 3.2; f/u: 0.9 -CXR: No acute infiltrate or cardiovascular disease appreciable. Small nodule at R middle or lower lobes: f/u. -CT: chest: 1.7 cm pleural thickening or potential focal atelectasis at inferomedial R major fissure. An intrinsic mass is not favored. f/u w/o 3-6 mo. -s/p Zosyn, Vancomycin ED -ID: Dr. Fowler: recommendations appreciated: continue vanc/zosyn. (day 3) -Vanc trough: 6.2 06/08/2017 -s/p IV fluids 1L NS bolus and NS 150 ml/h 20 meq KCL -blood cx: NGTD Left testicular epididymitis -with possible orchitis -Testicular US: left testicular orchitis with possible epidydimitis -Urology Dr Jones: f/u ucx. May consider Augmentin, Cefetin, Ciprofloxacin -ID: Dr Fowler , vanc/zosyn -f/u Gc/chlamydia: -f/u urine cx: UTI -low UTI secondary to orchitis. may be GC/chlamydia infection -UA hematuria, leukocyturia, leukocyte sterase positive -c/w abx -f/u urine cx Newly diagnosed HIV positive -Fatigue, weight loss -HIV rapid screening positive -CXR: No acute infiltrate or cardiovascular disease appreciable. Small nodule at R middle or lower lobes: f/u. -CT: chest: 1.7 cm pleural thickening or potential focal atelectasis at inferomedial R major fissure. An intrinsic mass is not favored. f/u w/o 3-6 mo. -f/u: HIV ag/Ab 4gen -f/u: Viral load -f/u: CD4 -f/u HepA, hepbAg/ab, hepc Ab: Acute Hep B infection -f/u: g/c -f/u rpr -f/u PPD: placed 06/07/2017: pending read on 06/10 -amylase: 127 /lipase: 230 -f/u: toxoplasmosis, CMV -Case management for referral to [facility] Hepatitis B -Acute infection: HepBag positive; Ab neg -mildy elevated LFT -monitor LFT Hypokalemia - resolved; K 4.0 -s/p: IV fluids NS and KCL 20 meq -f/u CMP DVT Prophylaxis -Lovenox 40 mg sc daily
[2017-06-08] MEDS: Enoxaparin 40 mg Syringe SC SCH (09:25)
[2017-06-08 10:08] LABS: HEPATITIS C ANTIBODY Negative (NEGATIVE)
[2017-06-08 15:25] LABS: HEPATITIS B SURFACE AG Reactive (NEGATIVE)
[2017-06-08 15:29] LABS: HEP B SURFACE AG CONF NEGATIVE
[2017-06-08 18:10] LABS: RAPID PLASMA REAGIN REACTIVE (NONREACTIVE)
--- NOTE | 2017-06-08 18:59 | CP.PCM.PN ---
Subjective - Date & Time of Evaluation Date of Evaluation: 06/08/17 Time of Evaluation: 09:00 - Subjective Subjective: improving epididmitis has co-infection with HBV also + RPR unclear if treated before for this- if never prev diagnosed may need LP to r/o GLASSIE involvement which would require 10 days IV rx await T cells and viral load may need social service involvement to ensure eligiblity for HAART rx before adding consider PO bactrim prophylactically Objective - Vital Signs/Intake and Output Vital Signs (last 24 hours): Temp Pulse Resp BP Pulse Ox 98.0 F 94 H 20 120/69 99 06/08/17 16:06 06/08/17 16:06 06/08/17 16:06 06/08/17 16:06 06/08/17 16:06 - Medications Medications: Current Medications Acetaminophen (Tylenol 325mg Tab) 650 mg PO Q6 PRN PRN Reason: Pain, Mild (1-3) Acetaminophen (Tylenol 325mg Tab) 650 mg PO Q6 PRN PRN Reason: Fever >100.4 F Last Admin: 06/07/17 11:44 Dose: 650 mg Enoxaparin Sodium (Lovenox) 40 mg SC DAILY BEVERLEY PRN Reason: Protocol Last Admin: 06/08/17 09:25 Dose: 40 mg Piperacillin Sod/Tazobactam (Sod 4.5 gm/ Sodium Chloride) 100 mls @ 100 mls/hr IVPB Q6 [facility]LEY PRN Reason: Protocol Last Admin: 06/08/17 18:04 Dose: 100 mls/hr Vancomycin HCl 1 gm/ Sodium (Chloride) 250 mls @ 166.667 mls/hr IVPB Q8 [facility]EVERLEY PRN Reason: Protocol Ibuprofen (Motrin Tab) 600 mg PO Q6 [facility] Last Admin: 06/08/17 18:05 Dose: 600 mg Ketorolac Tromethamine (Toradol) 15 mg IVP Q6 PRN PRN Reason: Pain, moderate (4-7) Last Admin: 06/07/17 20:10 Dose: 15 mg Ondansetron HCl (Zofran Inj) 4 mg IVP Q6 PRN PRN Reason: Nausea/Vomiting Oxycodone/Acetaminophen (Percocet 5/325 Mg Tab) 1 tab PO Q4 PRN PRN Reason: Pain, severe (8-10) Stop: 06/09/17 23:39 Last Admin: 06/08/17 09:24 Dose: 1 tab - Labs Labs: 06/08/17 06:00 06/08/17 06:00
--- NOTE | 2017-06-08 20:28 | CT ---
EXAM: CT Head Without Intravenous Contrast CLINICAL HISTORY: 41 years old, male; Signs and symptoms; Other: Neurosyphalis /severe sepsis, orchist TECHNIQUE: Axial computed tomography images of the head/brain without intravenous contrast. All CT scans at this facility use one or more dose reduction techniques, viz.: automated exposure control; ma/kV adjustment per patient size (including targeted exams where dose is matched to indication; i.e. head); or iterative reconstruction technique. Coronal and sagittal reformatted images were created and reviewed. COMPARISON: No relevant prior studies available. FINDINGS: Brain: No hemorrhage. No significant white matter disease. No edema. Ventricles: No hydrocephalus. Bones: Skull is intact. Sinuses: Opacification of partially visualized right maxillary sinus. Mastoid air cells: No mastoid effusion. IMPRESSION: No CT evidence of acute intracranial abnormality. MRI with contrast can provide more sensitive evaluation. Opacification of partially visualized right maxillary sinus.
--- NOTE | 2017-06-08 23:25 | CP.PCM.PN ---
Subjective - Date & Time of Evaluation Date of Evaluation: 06/08/17 Time of Evaluation: 23:25 - Subjective Subjective: Procedure Note: Pt. for Lumbar puncture. Consent obtained. Risks and Benefits explained. Lumbar Puncture Date: 06/08/17 Time: 11:00p.m Indication: Neurosyphillis Bakari performing procedure - Dr. Gallito Qureshi M.D. A time-out was completed verifying correct patient, procedure, site, positioning , and special equipment if applicable. The patient was placed in the upright prone with help from the nursing staff. The area was cleansed and draped in usual sterile fashion. 1% lidocaine was used anesthetize the surrounding skin area. A 20-gauge 3.5-inch spinal needle was placed in the [id number]. Clear cerebral spinal fluid was obtained. Four tubes were filled with 2 ml of CSF. These were sent for the usual tests, including 1 tube to be held for further analysis if needed. Ira Plunkett R.N. and anju Myers was present for the entire procedure Estimated Blood Loss: 1cc. The patient tolerated the procedure well and there were no complications. Objective - Vital Signs/Intake and Output Vital Signs (last 24 hours): Temp Pulse Resp BP Pulse Ox 97.6 F 94 H 20 160/69 H 99 06/08/17 21:20 06/08/17 21:00 06/08/17 21:00 06/08/17 21:00 06/08/17 21:00 - Medications Medications: Current Medications Acetaminophen (Tylenol 325mg Tab) 650 mg PO Q6 PRN PRN Reason: Pain, Mild (1-3) Acetaminophen (Tylenol 325mg Tab) 650 mg PO Q6 PRN PRN Reason: Fever >100.4 F Last Admin: 06/07/17 11:44 Dose: 650 mg Enoxaparin Sodium (Lovenox) 40 mg SC DAILY B[facility]LEY PRN Reason: Protocol Last Admin: 06/08/17 09:25 Dose: 40 mg Piperacillin Sod/Tazobactam (Sod 4.5 gm/ Sodium Chloride) 100 mls @ 100 mls/hr IVPB Q6 [facility] PRN Reason: Protocol Last Admin: 06/08/17 21:14 Dose: 100 mls/hr Vancomycin HCl 1 gm/ Sodium (Chloride) 250 mls @ 166.667 mls/hr IVPB Q8 [facility] PRN Reason: Protocol Ibuprofen (Motrin Tab) 600 mg PO Q6 [facility] Last Admin: 06/08/17 21:20 Dose: 600 mg Ketorolac Tromethamine (Toradol) 15 mg IVP Q6 PRN PRN Reason: Pain, moderate (4-7) Last Admin: 06/07/17 20:10 Dose: 15 mg Ondansetron HCl (Zofran Inj) 4 mg IVP Q6 PRN PRN Reason: Nausea/Vomiting Oxycodone/Acetaminophen (Percocet 5/325 Mg Tab) 1 tab PO Q4 PRN PRN Reason: Pain, severe (8-10) Stop: 06/09/17 23:39 Last Admin: 06/08/17 09:24 Dose: 1 tab - Labs Labs: 06/08/17 06:00 06/08/17 06:00
[2017-06-09 00:15] LABS: FLUID TYPE SPINAL FLUID
[2017-06-09 03:06] LABS: CSF VOLUME 1 mL (0-1)
[2017-06-09 03:07] LABS: CSF APPEARANCE CLEAR/COLORLESS (CLEAR)
[2017-06-09 03:08] LABS: CSF MONO/MACROPHAGE 0 % (0-0)
[2017-06-09] MEDS: Piperacillin/Tazobact 4.5 GM in Sodium Chloride 0.9% 100 ML IVPB SCH ×4 (03:44→21:43)
[2017-06-09 06:14] LABS: BLOOD UREA NITROGEN 11 mg/dl (9-20); GFR AFRICAN-AMERICAN > 60; GFR NON-AFRICAN AMERICAN > 60
[2017-06-09 06:53] LABS: % CD4 (T HELPER CELL) 12 Percent (30-61); % CD8 (SUPPRESSOR T CELL) 57 Percent (12-42); ABSOLUTE CD4 CELLS 41 Cells/mcL (490-1740); ABSOLUTE CD8 CELLS 190 Cells/mcL (180-1170); ABSOLUTE LYMPHOCYTES 335 Cells/mcL (850-3900); HELPER/SUPPRESSOR RATIO 0.22 Ratio (0.86-5.00)
[2017-06-09] MEDS: Enoxaparin 40 mg Syringe SC SCH (09:24)
--- NOTE | 2017-06-09 09:29 | CP.PCM.PN ---
Subjective - Date & Time of Evaluation Date of Evaluation: 06/09/17 Time of Evaluation: 09:05 - Subjective Subjective: Pt seen and examined at bedside this am. Reports improved symptoms. Denies significant tenderness to L testicle. Denies significant overnight events. Denies CP/SOB/N/V. Tolerating PO diet. Last bm was yesterday. Denies dysuria. Objective - Vital Signs/Intake and Output Vital Signs (last 24 hours): Temp Pulse Resp BP Pulse Ox 98.4 F 76 18 117/69 99 06/09/17 08:00 06/09/17 08:00 06/09/17 08:00 06/09/17 08:00 06/09/17 08:00 - Medications Medications: Current Medications Acetaminophen (Tylenol 325mg Tab) 650 mg PO Q6 PRN PRN Reason: Pain, Mild (1-3) Acetaminophen (Tylenol 325mg Tab) 650 mg PO Q6 PRN PRN Reason: Fever >100.4 F Last Admin: 06/07/17 11:44 Dose: 650 mg Azithromycin (Zithromax) 600 mg PO QWK [facility] PRN Reason: Protocol Enoxaparin Sodium (Lovenox) 40 mg SC DAILY [facility] PRN Reason: Protocol Last Admin: 06/09/17 09:24 Dose: 40 mg Piperacillin Sod/Tazobactam (Sod 4.5 gm/ Sodium Chloride) 100 mls @ 100 mls/hr IVPB Q6 [facility] PRN Reason: Protocol Last Admin: 06/09/17 09:25 Dose: 100 mls/hr Vancomycin HCl 1 gm/ Sodium (Chloride) 250 mls @ 166.667 mls/hr IVPB Q8 [facility] PRN Reason: Protocol Last Admin: 06/09/17 09:24 Dose: 166.667 mls/hr Ibuprofen (Motrin Tab) 600 mg PO Q6 [facility] Last Admin: 06/09/17 03:52 Dose: 600 mg Ketorolac Tromethamine (Toradol) 15 mg IVP Q6 PRN PRN Reason: Pain, moderate (4-7) Last Admin: 06/07/17 20:10 Dose: 15 mg Ondansetron HCl (Zofran Inj) 4 mg IVP Q6 PRN PRN Reason: Nausea/Vomiting Oxycodone/Acetaminophen (Percocet 5/325 Mg Tab) 1 tab PO Q4 PRN PRN Reason: Pain, severe (8-10) Stop: 06/09/17 23:39 Last Admin: 06/08/17 09:24 Dose: 1 tab Trimethoprim/Sulfamethoxazole (Bactrim Ds Tab) 1 tab PO Q12 [facility] PRN Reason: Protocol - Labs Labs: 06/08/17 06:00 06/09/17 04:30 - Constitutional Appears: No Acute Distress - Eye Exam Eye Exam: EOMI - ENT Exam Additional comments: L perioral lesions healing - Respiratory Exam Respiratory Exam: Clear to Ausculation Bilateral - Cardiovascular Exam Cardiovascular Exam: +S1, +S2 - GI/Abdominal Exam GI & Abdominal Exam: Soft, Normal Bowel Sounds. absent: Tenderness - Neurological Exam Neurological Exam: Alert, Awake, CN II-XII Intact, Oriented x3 - Psychiatric Exam Psychiatric exam: Normal Affect, Normal Mood Assessment and Plan - Assessment and Plan (Free Text) Plan: 41 yo M PMhx/o left kidney agenesia c/o left testicular swelling, pain and fever for 3 days admitted for left testicular epididymitis, new diagnosis HIV and presented sev sepsis. Assessment/Plan Sepsis- improving - Transfer to / -SIRS( fever, Tachy)+epididymitis+UTI; Fever and tachycardia resolved on 2017 approx 16:00 -inmunospuressed patient with new diagnosis HIV -VBG lactic acid 3.2; f/u: 0.9 -CXR: No acute infiltrate or cardiovascular disease appreciable. Small nodule at R middle or lower lobes: f/u. -CT: chest: 1.7 cm pleural thickening or potential focal atelectasis at inferomedial R major fissure. An intrinsic mass is not favored. f/u w/o 3-6 mo. -s/p Zosyn, Vancomycin ED -ID: Dr. Fowler: recommendations appreciated: -Vanc trough: 6.2 06/08/2017 -s/p IV fluids 1L NS bolus and NS 150 ml/h 20 meq KCL -blood cx: NGx 48hr Left testicular epididymitis -with possible orchitis -Testicular US: left testicular orchitis with possible epidydimitis -Urology Dr Jones: f/u ucx. May consider Augmentin, Cefetin, Ciprofloxacin -ID: Dr Fowler , vanc/zosyn -f/u Gc/chlamydia: -f/u urine cx: gram pos cocci UTI -low UTI secondary to orchitis. may be GC/chlamydia infection -UA hematuria, leukocyturia, leukocyte sterase positive -c/w abx -f/u urine cx: gram pos cocci Newly diagnosed HIV positive -Fatigue, weight loss -HIV rapid screening positive -CXR: No acute infiltrate or cardiovascular disease appreciable. Small nodule at R middle or lower lobes: f/u. -CT: chest: 1.7 cm pleural thickening or potential focal atelectasis at inferomedial R major fissure. An intrinsic mass is not favored. f/u w/o 3-6 mo. -f/u: HIV ag/Ab 4gen -CT head: No evidence of acute intracranial abnormality -CD4: 41; %: 12 -HepA: Ab +, hepbAg: pos; hepbab: neg (pending hep b e Ab and Ag), hepc Ab: neg -f/u: g/c -f/u PPD: placed 06/07/2017: read on 06/09: no induration; pt may not be able to mount an immune reponse -f/u quant gold: -amylase: 127/lipase: 230 -f/u: toxoplasmosis, CMV -Case management for referral to [facility]: Pt also given information Syphilis: -rpr: 1:8; f/u FTA-ABS -PCN 2.4 MU -LP: pending cx -ID on board Hepatitis B -HepBag positive; Ab neg -mildy elevated LFT -monitor LFT Hypokalemia - resolved; K 3.8 -s/p: IV fluids NS and KCL 20 meq -f/u BMP DVT Prophylaxis -Lovenox 40 mg sc daily Disposition planning: Tmax 102.8; last fever 06/08 at 12:26; Considering narrowing/switching to PO for abx
[2017-06-09] MEDS ORDERED: Penicillin G Benzathine 2.4 Mill Unit/4 ml Syr IM ONE ×2 (09:35→14:31)
[2017-06-09] MEDS: Oxycodone/Acetaminophen 5/325 mg Tab PO PRN (12:16)
--- NOTE | 2017-06-09 12:26 | CP.PCM.PN ---
Subjective - Date & Time of Evaluation Date of Evaluation: 06/09/17 Time of Evaluation: 09:00 - Subjective Subjective: LP pending IV rx in progress scrotal swelling less Objective - Vital Signs/Intake and Output Vital Signs (last 24 hours): Temp Pulse Resp BP Pulse Ox 98.4 F 91 H 18 117/73 99 06/09/17 11:58 06/09/17 11:58 06/09/17 11:58 06/09/17 11:58 06/09/17 11:58 - Medications Medications: Current Medications Acetaminophen (Tylenol 325mg Tab) 650 mg PO Q6 PRN PRN Reason: Pain, Mild (1-3) Acetaminophen (Tylenol 325mg Tab) 650 mg PO Q6 PRN PRN Reason: Fever >100.4 F Last Admin: 06/07/17 11:44 Dose: 650 mg Azithromycin (Zithromax) 600 mg PO QWK [facility] PRN Reason: Protocol Enoxaparin Sodium (Lovenox) 40 mg SC DAILY [facility] PRN Reason: Protocol Last Admin: 06/09/17 09:24 Dose: 40 mg Piperacillin Sod/Tazobactam (Sod 4.5 gm/ Sodium Chloride) 100 mls @ 100 mls/hr IVPB Q6 [facility] PRN Reason: Protocol Last Admin: 06/09/17 09:25 Dose: 100 mls/hr Vancomycin HCl 1 gm/ Sodium (Chloride) 250 mls @ 166.667 mls/hr IVPB Q8 [facility] PRN Reason: Protocol Last Admin: 06/09/17 09:24 Dose: 166.667 mls/hr Ibuprofen (Motrin Tab) 600 mg PO Q6 [facility] Last Admin: 06/09/17 09:28 Dose: 600 mg Ketorolac Tromethamine (Toradol) 15 mg IVP Q6 PRN PRN Reason: Pain, moderate (4-7) Last Admin: 06/07/17 20:10 Dose: 15 mg Ondansetron HCl (Zofran Inj) 4 mg IVP Q6 PRN PRN Reason: Nausea/Vomiting Oxycodone/Acetaminophen (Percocet 5/325 Mg Tab) 1 tab PO Q4 PRN PRN Reason: Pain, severe (8-10) Stop: 06/09/17 23:39 Last Admin: 06/09/17 12:16 Dose: 1 tab Trimethoprim/Sulfamethoxazole (Bactrim Ds Tab) 1 tab PO Q12 [facility] PRN Reason: Protocol - Labs Labs: 06/08/17 06:00 06/09/17 04:30 - Constitutional Appears: Non-toxic, Cachectic, Chronically Ill - Head Exam Head Exam: NORMOCEPHALIC - Eye Exam Eye Exam: Normal appearance, PERRL. absent: Scleral icterus - ENT Exam ENT Exam: Mucous Membranes Dry - Neck Exam Neck Exam: absent: Lymphadenopathy - Respiratory Exam Respiratory Exam: Decreased Breath Sounds, Rhonchi - Cardiovascular Exam Cardiovascular Exam: REGULAR RHYTHM, +S1, +S2 - GI/Abdominal Exam GI & Abdominal Exam: Distended, Soft Assessment and Plan (1) Epididymitis Status: Acute (2) HIV (human immunodeficiency virus infection) Status: Acute (3) Orchitis Status: Acute (4) Severe sepsis Status: Acute (5) Right inguinal hernia Status: Acute - Assessment and Plan (Free Text) Assessment: cont rx
[2017-06-09] MEDS ORDERED: Penicillin G Benzathine 1.2 Mill Unit/2 ml Syr IM ONE ×2 (13:30→14:45)
[2017-06-09] MEDS: Tmp-Smz 800 mg-160 mg DS Tab PO SCH ×2 (13:31→21:39)
[2017-06-09 14:17] LABS: HAV AB (IGM) Nonreactive (Nonreactive)
[2017-06-09] MEDS ORDERED: Pneumococcal 23-Valent Vaccine IM ONE (21:00)
[2017-06-10 01:01] LABS: TB ANTIGEN MINUS NIL <0.00 IU/mL
[2017-06-10] MEDS: Piperacillin/Tazobact 4.5 GM in Sodium Chloride 0.9% 100 ML IVPB SCH ×4 (04:52→21:44)
[2017-06-10] MEDS: Tmp-Smz 800 mg-160 mg DS Tab PO SCH (10:24)
[2017-06-10] MEDS: Enoxaparin 40 mg Syringe SC SCH (10:24)
[2017-06-10 12:12] LABS: ALB/GLOB RATIO 0.5 (1.0-2.1); ALBUMIN 2.8 g/dL (3.5-5.0); BILIRUBIN,DIRECT 0.2 mg/ml (0.0-0.4)
--- NOTE | 2017-06-10 12:29 | CP.PCM.PN ---
Subjective - Date & Time of Evaluation Date of Evaluation: 06/10/17 Time of Evaluation: 10:15 - Subjective Subjective: Pt. seen at bedside with sheets covering his face. Pt. awakens with verbal cue. Pt. with no complaints reports scrotal swelling and pain improving. Overnight events reviewed. Objective - Vital Signs/Intake and Output Vital Signs (last 24 hours): Temp Pulse Resp BP Pulse Ox 98.3 F 75 20 120/70 100 06/10/17 07:53 06/10/17 07:53 06/10/17 07:53 06/10/17 07:53 06/10/17 07:53 Intake and Output: 06/10/17 06/10/17 06:59 18:59 Intake Total 630 Balance 630 - Medications Medications: Current Medications Acetaminophen (Tylenol 325mg Tab) 650 mg PO Q6 PRN PRN Reason: Pain, Mild (1-3) Acetaminophen (Tylenol 325mg Tab) 650 mg PO Q6 PRN PRN Reason: Fever >100.4 F Last Admin: 06/07/17 11:44 Dose: 650 mg Azithromycin (Zithromax) 1,200 mg PO QWK [facility] PRN Reason: Protocol Last Admin: 06/10/17 10:23 Dose: 1,200 mg Enoxaparin Sodium (Lovenox) 40 mg SC DAILY [facility] PRN Reason: Protocol Last Admin: 06/10/17 10:24 Dose: 40 mg Piperacillin Sod/Tazobactam (Sod 4.5 gm/ Sodium Chloride) 100 mls @ 100 mls/hr IVPB Q6 [facility] PRN Reason: Protocol Last Admin: 06/10/17 04:52 Dose: 100 mls/hr Vancomycin HCl 1 gm/ Sodium (Chloride) 250 mls @ 166.667 mls/hr IVPB Q8 [facility] PRN Reason: Protocol Last Admin: 06/10/17 10:21 Dose: 166.667 mls/hr Ibuprofen (Motrin Tab) 600 mg PO Q6 [facility] Last Admin: 06/10/17 10:31 Dose: 600 mg Ketorolac Tromethamine (Toradol) 15 mg IVP Q6 PRN PRN Reason: Pain, moderate (4-7) Last Admin: 06/07/17 20:10 Dose: 15 mg - Labs Labs: 06/08/17 06:00 06/09/17 04:30 - Constitutional Appears: Non-toxic, No Acute Distress - Eye Exam Eye Exam: Normal appearance. absent: Scleral icterus - Neck Exam Neck Exam: Full ROM - Respiratory Exam Respiratory Exam: Clear to Ausculation Bilateral, NORMAL BREATHING PATTERN - Cardiovascular Exam Cardiovascular Exam: REGULAR RHYTHM, +S1, +S2 - GI/Abdominal Exam GI & Abdominal Exam: Soft. absent: Tenderness - Exam Exam: Scrotal Swelling, Testicular Tenderness - Back Exam Back Exam: NORMAL INSPECTION - Psychiatric Exam Psychiatric exam: Normal Affect, Normal Mood Assessment and Plan - Assessment and Plan (Free Text) Assessment: 41 y.o. male admitted for sepsis now resolved with persistent epidymitis/ orchitis resolving and newly diagnosed with HIV/AIDS now with +RPR still on I.V. antibiotics HIV/AIDS with +RPR 1- Tcell count <200 2- Continue Bactrim DS 3- Continue Azithromycin 4- s/p LP awaiting CSF VDRL result & CSF culture subsequently givein Benathine Pen-G 2.4million units I.M. 5- Referal to [facility] as an outpatietn. 6- Will await VDRL CSF result to evaluate for Neurosyphillis and consider discharge on PO abx Orchitis/Epididmyits 1- Continue Zosyn for now as per I.D. recommendations 2- Scrotal support order communicated to nurse 3- Ice wrapped in towel placed under scrotum to reduce inflammation for 20 minute six times daily as needed 4- Will consider consult with Urology given symptoms are improving but on physical swelling and tenderness persist Acute Hepatitis B- AST mildly elevated at 79 1- Surface antigen positive 2- Hep B antibody negative 3- Hepatitis e antibody ordered- pending 4- Supportive care for now 5- Avoid Hepatoxic agents 6- Continue to monitor DVT prophylaxis 1- Lovenox Diet 1- Regular Code status 1- Full
[2017-06-11] MEDS: Piperacillin/Tazobact 4.5 GM in Sodium Chloride 0.9% 100 ML IVPB SCH ×4 (04:30→21:51)
[2017-06-11] MEDS: Enoxaparin 40 mg Syringe SC SCH (08:46)
--- NOTE | 2017-06-11 10:29 | CP.PCM.PN ---
Subjective - Date & Time of Evaluation Date of Evaluation: 06/11/17 Time of Evaluation: 08:30 - Subjective Subjective: Pt seen and examined at bedside. Declined significant overnight events. Reports minimal testicular discomfort. Tolerating PO diet. Denies dysuria. Reports bowel movement. Objective - Vital Signs/Intake and Output Vital Signs (last 24 hours): Temp Pulse Resp BP Pulse Ox 98.2 F 83 20 134/79 99 06/11/17 08:04 06/11/17 08:04 06/11/17 08:04 06/11/17 08:04 06/11/17 08:04 - Medications Medications: Current Medications Acetaminophen (Tylenol 325mg Tab) 650 mg PO Q6 PRN PRN Reason: Pain, Mild (1-3) Acetaminophen (Tylenol 325mg Tab) 650 mg PO Q6 PRN PRN Reason: Fever >100.4 F Last Admin: 06/07/17 11:44 Dose: 650 mg Enoxaparin Sodium (Lovenox) 40 mg SC DAILY [facility] PRN Reason: Protocol Last Admin: 06/11/17 08:46 Dose: 40 mg Piperacillin Sod/Tazobactam (Sod 4.5 gm/ Sodium Chloride) 100 mls @ 100 mls/hr IVPB Q6 [facility] PRN Reason: Protocol Last Admin: 06/11/17 04:30 Dose: 100 mls/hr Vancomycin HCl 1 gm/ Sodium (Chloride) 250 mls @ 166.667 mls/hr IVPB Q8 [facility] PRN Reason: Protocol Last Admin: 06/11/17 08:41 Dose: 166.667 mls/hr Ibuprofen (Motrin Tab) 600 mg PO Q6 [facility] Last Admin: 06/11/17 04:40 Dose: 600 mg Ketorolac Tromethamine (Toradol) 15 mg IVP Q6 PRN PRN Reason: Pain, moderate (4-7) Last Admin: 06/07/17 20:10 Dose: 15 mg Trimethoprim/Sulfamethoxazole (Bactrim Ds Tab) 1 tab PO Q12 [facility] PRN Reason: Protocol - Labs Labs: 06/08/17 06:00 06/09/17 04:30 - Constitutional Appears: No Acute Distress - Eye Exam Eye Exam: EOMI - Respiratory Exam Respiratory Exam: Clear to Ausculation Bilateral. absent: Wheezes - Cardiovascular Exam Cardiovascular Exam: +S1, +S2 - GI/Abdominal Exam GI & Abdominal Exam: Soft, Normal Bowel Sounds. absent: Tenderness - Exam Exam: Scrotal Swelling, Testicular Tenderness (slight tenderness to palpation ; decreasing in size). absent: Circumcision - Neurological Exam Neurological Exam: Alert, Awake, CN II-XII Intact, Oriented x3 - Psychiatric Exam Psychiatric exam: Normal Affect, Normal Mood Assessment and Plan - Assessment and Plan (Free Text) Plan: 41 yo male with recent diagosis of AIDS presented with L testicular enlargement/ tenderness, and sepsis, with RPR, Hep B, AIDS - Tcell count: 41 - Continue Bactrim DS - Continue Azithromycin - s/p LP awaiting CSF VDRL result & CSF culture - Referal to [facility] as an outpatietn. RPR -1:8 with FTA-ABS pos -given Benathine Pen-G 2.4million units I.M. -pending VRDL Orchitis/Epididmyits -Continue Zosyn for now as per I.D. recommendations -Scrotal support order communicated to nurse -Ice wrapped in towel placed under scrotum to reduce inflammation for 20 minute six times daily as needed -Urology on board Hepatitis B -Surface Ag pos; Ab neg; pending Hep Be -supportive care, avoid hepatotoxic agents -monitor lft DVT prophylaxis -lovenox Diet -regular Code Status -Full code
[2017-06-11] MEDS: Tmp-Smz 800 mg-160 mg DS Tab PO SCH ×2 (10:50→21:49)
--- NOTE | 2017-06-11 12:23 | CP.PCM.PN ---
Subjective - Date & Time of Evaluation Date of Evaluation: 06/11/17 Time of Evaluation: 10:00 - Subjective Subjective: afebrile on IV rx less pain and swelling IV rx in progress await CSF syphilis test will need HAART rx once he obtains benefits through [facility] Objective - Vital Signs/Intake and Output Vital Signs (last 24 hours): Temp Pulse Resp BP Pulse Ox 98.2 F 83 20 134/79 99 06/11/17 08:04 06/11/17 08:04 06/11/17 08:04 06/11/17 08:04 06/11/17 08:04 - Medications Medications: Current Medications Acetaminophen (Tylenol 325mg Tab) 650 mg PO Q6 PRN PRN Reason: Pain, Mild (1-3) Acetaminophen (Tylenol 325mg Tab) 650 mg PO Q6 PRN PRN Reason: Fever >100.4 F Last Admin: 06/07/17 11:44 Dose: 650 mg Enoxaparin Sodium (Lovenox) 40 mg SC DAILY [facility] PRN Reason: Protocol Last Admin: 06/11/17 08:46 Dose: 40 mg Piperacillin Sod/Tazobactam (Sod 4.5 gm/ Sodium Chloride) 100 mls @ 100 mls/hr IVPB Q6 [facility] PRN Reason: Protocol Last Admin: 06/11/17 09:50 Dose: 100 mls/hr Vancomycin HCl 1,000 mg/ (Sodium Chloride) 250 mls @ 250 mls/hr IVPB Q12H [facility] PRN Reason: Protocol Ibuprofen (Motrin Tab) 600 mg PO Q6 [facility] Last Admin: 06/11/17 09:51 Dose: 600 mg Ketorolac Tromethamine (Toradol) 15 mg IVP Q6 PRN PRN Reason: Pain, moderate (4-7) Last Admin: 06/07/17 20:10 Dose: 15 mg Trimethoprim/Sulfamethoxazole (Bactrim Ds Tab) 1 tab PO Q12 [facility] PRN Reason: Protocol Last Admin: 06/11/17 10:50 Dose: 1 tab - Labs Labs: 06/08/17 06:00 06/09/17 04:30 - Constitutional Appears: Non-toxic, Chronically Ill - Head Exam Head Exam: NORMOCEPHALIC - Eye Exam Eye Exam: PERRL. absent: Scleral icterus - ENT Exam ENT Exam: Mucous Membranes Dry - Neck Exam Neck Exam: absent: Lymphadenopathy - Respiratory Exam Respiratory Exam: Decreased Breath Sounds, Rhonchi - Cardiovascular Exam Cardiovascular Exam: REGULAR RHYTHM - GI/Abdominal Exam GI & Abdominal Exam: Distended, Soft. absent: Tenderness - Rectal Exam Rectal Exam: Deferred - Exam Exam: Scrotal Swelling - Extremities Exam Extremities Exam: absent: Pedal Edema - Back Exam Back Exam: absent: CVA tenderness (L), CVA tenderness (R) - Neurological Exam Neurological Exam: Alert, Awake, CN II-XII Intact, Oriented x3 Neuro motor strength exam: Left Upper Extremity: 5, Right Upper Extremity: 5, Left Lower Extremity: 5, Right Lower Extremity: 5 - Psychiatric Exam Psychiatric exam: Normal Mood - Skin Skin Exam: Dry Assessment and Plan (1) Epididymitis Status: Acute (2) HIV (human immunodeficiency virus infection) Status: Acute (3) Orchitis Status: Acute (4) Severe sepsis Status: Acute (5) Right inguinal hernia Status: Acute
[2017-06-12] MEDS: Piperacillin/Tazobact 4.5 GM in Sodium Chloride 0.9% 100 ML IVPB SCH (03:53)
[2017-06-12 06:26] LABS: BASO % 0.3 % (0.0-2.0); EOS # 0.2 K/uL (0.0-0.7); HEMOGLOBIN 9.1 g/dL (12.0-18.0); LYMPH # 0.8 K/uL (1.0-4.3); LYMPH % 11.1 % (20.0-40.0); MEAN CELL VOLUME 82.3 fl (80.0-94.0); MEAN CORPUSCULAR HEMOGLOBIN 26.8 pg (27.0-31.0); MEAN CORPUSCULAR HGB CONC 32.5 g/dL (33.0-37.0); MEAN PLATELET VOLUME 7.1 fl (7.2-11.7); MONO # 0.7 K/uL (0.0-0.8); MONO % 10.8 % (0.0-10.0); NEUT # 5.1 K/uL (1.8-7.0); NEUT % 74.8 % (50.0-75.0); RBC 3.39 Mil/uL (4.40-5.90); RED CELL DISTRIBUTION WIDTH 15.4 % (11.5-14.5); WHITE BLOOD COUNT 6.9 K/uL (4.8-10.8)
--- NOTE | 2017-06-12 07:15 | CP.PCM.DIS ---
Provider - Provider Date of Admission: 06/06/17 21:56 Attending physician: Ellie Webb MD Time Spent in preparation of Discharge (in minutes): 20 Diagnosis - Discharge Diagnosis (1) AIDS Status: Acute (2) Epididymitis Status: Acute (3) Orchitis Status: Acute Hospital Course - Lab Results Lab Results: Micro Results 06/06/17 20:35 Blood-Venous Blood Culture - Final NO GROWTH AFTER 5 DAYS 06/06/17 20:35 Blood-Venous Gram Stain - Final TEST NOT PERFORMED 06/06/17 20:00 Blood-Venous Blood Culture - Final NO GROWTH AFTER 5 DAYS 06/06/17 20:00 Blood-Venous Gram Stain - Final TEST NOT PERFORMED 06/09/17 00:13 Cerebral Spinal Fluid Gram Stain - Final 06/09/17 00:13 Cerebral Spinal Fluid CSF Culture - Preliminary NO GROWTH AFTER 2 DAYS 06/06/17 20:30 Urine,Clean Catch Urine Culture - Final Gram Positive Cocci Most Recent Lab Values WBC 6.9 K/uL (4.8-10.8) 06/12/17 05:30 RBC 3.39 Mil/uL (4.40-5.90) L 06/12/17 05:30 Hgb 9.1 g/dL (12.0-18.0) L 06/12/17 05:30 Hct 27.9 % (35.0-51.0) L 06/12/17 05:30 MCV 82.3 fl (80.0-94.0) 06/12/17 05:30 MCH 26.8 pg (27.0-31.0) L 06/12/17 05:30 MCHC 32.5 g/dL (33.0-37.0) L 06/12/17 05:30 RDW 15.4 % (11.5-14.5) H 06/12/17 05:30 Plt Count 320 K/uL (130-400) D 06/12/17 05:30 MPV 7.1 fl (7.2-11.7) L 06/12/17 05:30 Neut % (Auto) 74.8 % (50.0-75.0) 06/12/17 05:30 Lymph % (Auto) 11.1 % (20.0-40.0) L 06/12/17 05:30 [place] % (Auto) 10.8 % (0.0-10.0) H 06/12/17 05:30 Eos % (Auto) 3.0 % (0.0-4.0) 06/12/17 05:30 Baso % (Auto) 0.3 % (0.0-2.0) 06/12/17 05:30 Neut # (Auto) 5.1 K/uL (1.8-7.0) 06/12/17 05:30 Lymph # (Auto) 0.8 K/uL (1.0-4.3) L 06/12/17 05:30 [place] # (Auto) 0.7 K/uL (0.0-0.8) 06/12/17 05:30 Eos # (Auto) 0.2 K/uL (0.0-0.7) 06/12/17 05:30 Baso # (Auto) 0.0 K/uL (0.0-0.2) 06/12/17 05:30 pO2 38 mm/Hg (30-55) 06/07/17 00:26 VBG pH 7.45 (7.32-7.43) H 06/07/17 00:26 VBG pCO2 33 mmHg (40-60) L 06/07/17 00:26 VBG HCO3 24.0 mmol/L 06/07/17 00:26 VBG Total CO2 23.9 mmol/L (22-28) 06/07/17 00:26 VBG O2 Sat (Calc) 74.9 % (40-65) H 06/07/17 00:26 VBG Base Excess -0.4 mmol/L (0.0-2.0) L 06/07/17 00:26 VBG Potassium 3.6 mmol/L (3.6-5.2) 06/07/17 00:26 Sodium 131.0 mmol/L (132-148) L 06/07/17 00:26 Chloride 102.0 mmol/L (98-107) 06/07/17 00:26 Glucose 94 mg/dL (75-110) 06/07/17 00:26 Lactate 0.9 mmol/L (0.7-2.1) 06/07/17 00: FiO2 21.0 % 06/07/17 00:26 Crit Value Called To kelsey Seaman do 06/06/17 21:06 Crit Value Called By Patrick mendoza 06/06/17 21:06 Crit Value Read Back Y 06/06/17 21:06 Blood Gas Notified Time 211406/06/17 21:06 Sodium 144 mmol/l (132-148) 06/12/17 05:30 Potassium 4.3 MMOL/L (3.6-5.0) 06/12/17 05:30 Chloride 109 mmol/L (98-107) H 06/12/17 05:30 Carbon Dioxide 21 mmol/L (22-30) L 06/12/17 05:30 Anion Gap 18 (10-20) 06/12/17 05:30 BUN 13 mg/dl (9-20) 06/12/17 05:30 Creatinine 0.9 mg/dl (0.8-1.5) 06/12/17 05:30 Est GFR ( Amer) > 60 06/12/17 05:30 Est GFR (Non-Af Amer) > 60 06/12/17 05:30 Random Glucose 91 mg/dL (75-110) 06/12/17 05:30 Calcium 8.2 mg/dL (8.4-10.2) L 06/12/17 05:30 Total Bilirubin 0.2 mg/dl (0.2-1.3) 06/12/17 05:30 Direct Bilirubin 0.2 mg/ml (0.0-0.4) 06/10/17 11:00 AST 61 U/L (17-59) H D 06/12/17 05:30 ALT 61 U/L (21-72) 06/10/17 11:00 Alkaline Phosphatase 97 U/L (38-126) 06/12/17 05:30 Total Protein 8.2 G/DL (6.3-8.2) 06/12/17 05:30 Albumin 2.8 g/dL (3.5-5.0) L 06/12/17 05:30 Globulin 5.4 gm/dL (2.2-3.9) H 06/12/17 05:30 Albumin/Globulin Ratio 0.5 (1.0-2.1) L 06/12/17 05:30 Amylase 127 U/L (30-110) H 06/08/17 06:00 Lipase 230 U/L (23-300) 06/08/17 06:00 Venous Blood Potassium 3.6 mmol/L (3.6-5.2) 06/07/17 00:26 Urine Color Mercedes (YELLOW) 06/06/17 20:30 Urine Clarity Cloudy (Clear) 06/06/17 20:30 Urine pH 6.0 (5.0-8.0) 06/06/17 20:30 Ur Specific [place] 1.030 (1.003-1.030) 06/06/17 20:30 Urine Protein 100 mg/dL (NEGATIVE) 06/06/17 20:30 Urine Glucose (UA) Neg mg/dL (Normal) 06/06/17 20:30 Urine Ketones Negative mg/dL (NEGATIVE) 06/06/17 20:30 Urine Blood Moderate (NEGATIVE) 06/06/17 20:30 Urine Nitrate Negative (NEGATIVE) 06/06/17 20:30 Urine Bilirubin Negative (NEGATIVE) 06/06/17 20:30 Urine Urobilinogen 2.0 mg/dL (0.2-1.0) 06/06/17 20:30 Ur Leukocyte Esterase Trace Anton[place]/uL (Negative) 06/06/17 20:30 Urine RBC (Auto) 33 /hpf (0-3) H 06/06/17 20:30 Urine Microscopic WBC 15 /hpf (0-5) H 06/06/17 20:30 Ur Squamous Epith Cells 3 /hpf (0-5) 06/06/17 20:30 Amorphous Sediment Rare /ul (<OCC) H 06/06/17 20:30 Urine Bacteria Occ (<OCC) H 06/06/17 20:30 Hyaline Casts 0-2 /hpf (0-2) 06/06/17 20:30 Fluid Type Spinal fluid 06/09/17 00:13 CSF Volume 1 mL (0-1) 06/09/17 00:13 CSF Appearance Clear/colorless (CLEAR) 06/09/17 00:13 CSF WBC 3.0 /mm3 (0.0-5.0) 06/09/17 00:13 CSF RBC 75.0 /mm3 (0.0-0.0) H 06/09/17 00:13 CSF Total Cell Counted 3 (0-0) H 06/09/17 00:13 CSF Neutrophils 0 % (0-0) 06/09/17 00:13 CSF Lymphocytes 3.0 % (0-0) H 06/09/17 00:13 CSF Monos/Macrophages 0 % (0-0) 06/09/17 00:13 CSF Comment Colorless 06/09/17 00:13 CSF Glucose 55 mg/dL (40-70) 06/09/17 00:13 CSF Total Protein 18.0 mg/dL (12-60) 06/09/17 00:13 CSF VDRL Titer TEST NOT PERFORMED 06/09/17 00:13 CSF VDRL Nonreactive (Nonreactive) 06/09/17 00:13 Vancomycin Trough 16.2 ug/mL (5.0-10.0) H 06/10/17 11:00 Absolute Lymphs (Flow) 335 Cells/mcL (850-3900) L 06/07/17 04:20 % CD4 Cells 12 Percent (30-61) L 06/07/17 04:20 Absolute CD4 Count 41 Cells/mcL (490-1740) L 06/07/17 04:20 T-Help/Suppress Ratio 0.22 Ratio (0.86-5.00) L 06/07/17 04:20 % CD8 Cells 57 Percent (12-42) H 06/07/17 04:20 Absolute CD8 Count 190 Cells/mcL (180-1170) 06/07/17 04:20 T-Lymph Analys Comment See note 06/07/17 04:20 RPR Titer 1:8 (NONREACTIVE) H 06/08/17 06:00 RPR Reactive (NONREACTIVE) H 06/08/17 06:00 T.pallidum Ab (FTA-ABS) Reactive (Nonreactive) H 06/08/17 06:00 C.trachomatis RNA (TMA) Not detected (Not Detected) 06/06/17 08:17 CMV IgG Ab >10.00 U/mL H 06/08/17 06:00 CMV IgM Ab <30.00 AU/mL 06/08/17 06:00 Hepatitis A IgM Ab Nonreactive (Nonreactive) 06/08/17 06:00 Hepatitis A Ab Total Reactive (Nonreactive) H 06/08/17 06:00 Hep Bs Antigen Reactive (NEGATIVE) 06/07/17 04:20 Hep Bs Ag Neutralizatn Negative 06/07/17 04:20 Hep Bs Antibody Negative (NEGATIVE) 06/07/17 04:20 Hepatitis C Antibody Negative (NEGATIVE) 06/07/17 04:20 HSV Source Description Fluid 06/09/17 00:13 HIV-1 Ab Rapid Screen Ab reactive (NON REAC) H 06/06/17 20:30 HIV-1 Antibody Positive (Negative) H 06/06/17 04:20 HIV-1 RNA Qnt (RT-PCR) 5.45 (Not Detected) H 06/07/17 04:20 HIV-2 Antibody Indeterminate (Negative) H 06/06/17 04:20 HIV 1&2 Ag/Ab, 4th Gen Reactive (Nonreactive) H 06/06/17 04:20 N.gonorrhoeae RNA (TMA) Not detected (Not Detected) 06/06/17 08:17 Toxoplasma IgG Ab <7.20 IU/mL 06/08/17 06:00 Toxoplasma IgM Ab <8.00 AU/mL 06/08/17 06:00 TB Test (QFT) Nil 0.38 IU/mL 06/08/17 06:00 TB Test Mitogen - Nil >10.00 IU/mL 06/08/17 06:00 TB Test TB - Nil <0.00 IU/mL 06/08/17 06:00 TB Test (QFT) Negative (Negative) 06/08/17 06:00 - Hospital Course Hospital Course: 41 yo male with recent diagnosis of AIDS presented with L testicular enlargement /tenderness, and sepsis, with RPR, Hep B; AIDS: Tcell count: 41; %CD4: 12; Continue Bactrim DS PO qMWF, Azithromycin 600 mg twice weekly; [facility]erral to [facility] as an [facility]. CMV igG pos; RPR: 1:8 with FTA-ABS pos; s/p given Benathine Pen-G 2.4million units I.M. with 1 sent to pharmacy; CSF VDRL Neg; CT head Orchitis/Epididmyits: s/p zosyn; gg/c negative; scrotal support; significantly improved; no dysuria Hepatitis B: Surface Ag pos; Ab neg; Hep A Ab; Hep C neg; HSV: pending; Toxoplasma: neg; TB qft: neg Pt has appt with [facility] this week Discharge Exam - Head Exam Head Exam: NORMOCEPHALIC Discharge Plan - Discharge Medications Prescriptions: Azithromycin [Zithromax] 600 mg PO DAILY 30 Days #8 tab Ciprofloxacin [Cipro] 500 mg PO BID #14 tab Penicillin G Benzathine [Bicillin L-A inj] 2,400,000 units IM ONCE #1 chapis Sulfamethoxazole/Trimethoprim [Bactrim DS Tab] 1 tab PO MWF #12 tab - Follow Up Plan Condition: FAIR Disposition: HOME/ ROUTINE Instructions: HIV/AIDS (DC), Starting Treatment for HIV, Vaccines for People With HIV, Epididymitis (DC), Sexually-Transmitted Diseases (DC), Epididymo- orchitis (DC), Sepsis (DC) Additional Instructions: follow up with primary MD 1 week Referrals: Alexis Jones MD [Staff Provider] - Roberto Silva MD [Staff Provider] - Burak Fowler MD [Staff Provider] -
[2017-06-12 07:22] LABS: ALB/GLOB RATIO 0.5 (1.0-2.1); ALBUMIN 2.7 g/dL (3.5-5.0); ALT/SGPT 51 U/L (21-72); AST/SGOT 62 U/L (17-59); BLOOD UREA NITROGEN 12 mg/dl (9-20); CALCIUM 8.3 mg/dL (8.4-10.2); GFR AFRICAN-AMERICAN > 60; GFR NON-AFRICAN AMERICAN > 60
[2017-06-12 08:11] VITALS: BP 119/72; PULSE 67; RESP 18; TEMP 97.8; O2SAT 98
[2017-06-12] MEDS: Tmp-Smz 800 mg-160 mg DS Tab PO SCH (08:16)
[2017-06-12 22:25] LABS: SPECIMEN SOURCE CSF
[2017-06-13] MEDS ORDERED: Tmp-Smz 800 mg-160 mg DS Tab PO SCH (09:00)
[2017-06-14 18:28] LABS: HEPATITIS E AB (IGM) NOT DETECTED
== END 2017-06-12 15:40 | disposition home or self-care (01) | DRG 974 ==
LOC: H.ER 19:35 → H.ERHOLD 21:56 → H.TEL 23:38 → H.MEDSURG1 06-09 16:05
PROVIDERS: ADMIT Family Medicine Geriatric Medicine; ATTEND Family Medicine Geriatric Medicine
PROC: 009U3ZX Drainage of Spinal Canal, Percutaneous Approach, Diagnostic (ICD-10-PCS; 2017-06-08)
PROC: 3E0234Z Introduction of Serum, Toxoid and Vaccine into Muscle, Percutaneous Approach (ICD-10-PCS; principal; 2017-06-09)
DX: B20 Human immunodeficiency virus [HIV] disease (principal); A41.9 Sepsis, unspecified organism; R65.20 Severe sepsis without septic shock; N39.0 Urinary tract infection, site not specified; B16.9 Acute hepatitis B without delta-agent and without hepatic coma; N45.3 Epididymo-orchitis; E87.6 Hypokalemia; Z23 Encounter for immunization; A53.9 Syphilis, unspecified; K40.90 Unilateral inguinal hernia, without obstruction or gangrene, not specified as recurrent